=== PATIENT | female | born 1960 | race Caucasian/White ===

== ENCOUNTER 2025-02-23 15:01 | Emergency (ER) | payer OTHER ==
[2025-02-23 15:11] VITALS: RESP 20; BMI 25.4
[2025-02-23 16:35] LABS: ABSOLUTE IMMATURE GRANULOCYTES 0.05 x10^3/uL (0.0-0.031); BASOPHILS # 0.09 x10^3/uL (0.01-0.08); EOSINOPHIL % 0.9 % (0.7-5.8); EOSINOPHILS # 0.11 x10^3/uL (0.04-0.36); MCHC 33.3 g/dl (32.2-35.5); MEAN CELL VOLUME 82.9 fl (79.4-94.8); MEAN PLT VOLUME 9.3 fl (9.4-12.3); MONOCYTE # 0.94 x10^3/uL (0.24-0.86); MONOCYTE % 7.4 % (4.7-12.5); RDW 13.0 % (12.4-16.4)
[2025-02-23 16:39] LABS: EPI CELLS 2 /uL (0-25.1); HYALINE CASTS 0 /uL (0-3.1); URINE APPEARANCE CLEAR; URINE BACTERIA 132 /uL (0-1359); URINE BILIRUBIN NEGATIVE (NEGATIVE); URINE COLOR YELLOW; URINE GLUCOSE (UA) 3+ (NEGATIVE); URINE KETONE NEGATIVE (NEGATIVE); URINE LEUK ESTERASE 2+ (NEGATIVE); URINE NITRITE NEGATIVE (NEGATIVE); URINE PROTEIN NEGATIVE (NEGATIVE); URINE RBC 17 /uL (0-23.9); URINE UROBILINOGEN 0.2 mg/dL (0.2-1.0); URINE WBC 889 /uL (0-25.8)
[2025-02-23 16:43] LABS: INR 0.93 (0.83-1.09); PROTHROMBIN TIME (PATIENT) 10.2 SEC (9.7-13.0)
[2025-02-23 16:45] LABS: ACTIVATED PTT 29.3 SECONDS (25.2-36.5)
[2025-02-23 16:46] VITALS: BP 134/62; PULSE 94; TEMP 98.7
[2025-02-23 16:50] LABS: YEAST PRESENT (NEGATIVE)
[2025-02-23 16:53] LABS: CO2 29.0 mmol/L (21-32); GLUCOSE,RANDOM 248.0 mg/dL (74-106)
[2025-02-23 16:56] LABS: CREATININE 0.8 mg/dL (0.55-1.3); SGOT/AST 13.0 U/L (15-37); SGPT/ALT 37.0 U/L (13-61)
[2025-02-23 16:57] LABS: TOT PROT 7.4 g/dl (6.4-8.2)
[2025-02-23 16:58] LABS: ALK PHOS 127.0 U/L (45-117)
[2025-02-23] MEDS ORDERED: CEFTRIAXONE 1 GM/50 ML BAG ONE (18:02)
[2025-02-23] MEDS: CEFTRIAXONE 1 GM in DEXTROSE 5%-WATER - 100 ML IVPB ONE (18:15)
[2025-02-25 17:27] LABS: HIV INTERPRETATION NEGATIVE (NEGATIVE)
[2025-02-27 13:44] LABS: HCV DIAGNOSTIC IN-HOUSE W/RFLX NON-REACTIVE (NONREACTIVE)
== END 2025-02-23 19:50 | disposition home or self-care (01) ==
LOC: JER 15:01
PROC: 0T9B70Z Drainage of Bladder with Drainage Device, Via Natural or Artificial Opening (ICD-10-PCS; principal; 2025-02-23)
PROC: 3E03329 Introduction of Other Anti-infective into Peripheral Vein, Percutaneous Approach (ICD-10-PCS; 2025-02-23)
DX: N39.0 Urinary tract infection, site not specified (principal); R33.9 Retention of urine, unspecified; R30.0 Dysuria; R31.9 Hematuria, unspecified; R10.30 Lower abdominal pain, unspecified; R68.83 Chills (without fever)
CPT/HCPCS: 36415; 74176-TC; 80053; 81003; 85025; 85610; 85730; 86803; 86850; 86900; 86901; 87389; 99285-25